=== PATIENT | female | born 1975 | race African-American/Black ===

== ENCOUNTER 2018-07-11 19:53 | Emergency (ER) | payer OTHER ==
[~2018-07-11] VITALS: Ht 149.9 cm; Wt 46.7 kg
[~2018-07-11 19:53] MED LIST: ZOFRAN ODT4 MG PO
[2018-07-11] MEDS ORDERED: MUCINEX D TABL1 EACH PO (21:47)
[2018-07-11] MEDS ORDERED: TESSALON PERLE100 MG PO (21:47)
[2018-07-11] MEDS ORDERED: PREDNISONE 20 M20 MG PO (21:47)
[2018-07-11 22:19] VITALS: BP 126/82
== END 2018-07-11 22:20 | disposition home or self-care (01) ==
LOC: ER 19:53
DX: J40 Bronchitis, not specified as acute or chronic (principal)